=== PATIENT | female | born 1950 | race Two or more races ===

== ENCOUNTER 2021-12-22 08:46 | Outpatient (CLI) | payer OTHER | END 2021-12-22 08:58 | disposition home or self-care (01) | LOC: RX STUDY 08:46 | PROVIDERS: ATTEND Surgery | DX: K57.20 Diverticulitis of large intestine with perforation and abscess without bleeding (principal); Z93.3 Colostomy status; K43.5 Parastomal hernia without obstruction or gangrene ==

== ENCOUNTER 2022-07-07 09:15 | Inpatient (IN) | payer OTHER ==
[~2022-07-07] VITALS: Ht 149.9 cm; Wt 57.6 kg
[2022-07-07] MEDS ORDERED: CILOSTAZOL50 MG PO (11:43)
[2022-07-07] MEDS ORDERED: SERTRALINE20 MG/1 ML PO (11:43)
[2022-07-07] MEDS ORDERED: CEVIMELINE HCL30 MG PO (11:43)
[2022-07-07] MEDS ORDERED: CLONAZEPAM0.5 M1 PO (11:43)
[2022-07-07] MEDS ORDERED: SYNTHROID100 MCG PO (11:43)
[2022-07-13] MEDS ORDERED: INTESTINEX680 M1 (11:02)
[2022-07-13] MEDS ORDERED: RESTASIS1 EACH (11:02)
[2022-07-14] MEDS ORDERED: ULTRACET PO (17:07)
== END 2022-07-14 22:05 | disposition home or self-care (01) | DRG 330 ==
LOC: O/R 07-09 05:12 → SURG 07-09 05:12 → SURH 07-09 07:00 → EDBD 07-09 09:15 → SURH 07-09 09:15 → SURG 07-10 00:14
PROVIDERS: Surgery; ADMIT Surgery; ATTEND Surgery
PROC: 0WQF0ZZ Repair Abdominal Wall, Open Approach (ICD-10-PCS; 2022-07-09)
PROC: 0DNW0ZZ Release Peritoneum, Open Approach (ICD-10-PCS; 2022-07-09)
PROC: 0DBU0ZZ Excision of Omentum, Open Approach (ICD-10-PCS; 2022-07-09)
PROC: 0DB80ZZ Excision of Small Intestine, Open Approach (ICD-10-PCS; 2022-07-09)
PROC: 0DJD8ZZ Inspection of Lower Intestinal Tract, Via Natural or Artificial Opening Endoscopic (ICD-10-PCS; 2022-07-09)
PROC: 3E0F7SF Introduction of Other Gas into Respiratory Tract, Via Natural or Artificial Opening (ICD-10-PCS; 2022-07-09)
PROC: 0DTN0ZZ Resection of Sigmoid Colon, Open Approach (ICD-10-PCS; principal; 2022-07-09 07:00)
PROC: 0DBP0ZZ Excision of Rectum, Open Approach (ICD-10-PCS; 2022-07-09 07:00)
PROC: 3E0F7GC Introduction of Other Therapeutic Substance into Respiratory Tract, Via Natural or Artificial Opening (ICD-10-PCS; 2022-07-13)
DX: K57.20 Diverticulitis of large intestine with perforation and abscess without bleeding (principal); K43.0 Incisional hernia with obstruction, without gangrene; K43.5 Parastomal hernia without obstruction or gangrene; K66.0 Peritoneal adhesions (postprocedural) (postinfection); Z53.31 Laparoscopic surgical procedure converted to open procedure; Z43.3 Encounter for attention to colostomy; R53.83 Other fatigue; E03.9 Hypothyroidism, unspecified